=== PATIENT | male | born 1965 | race Caucasian/White ===

== ENCOUNTER 2017-10-12 15:50 | Inpatient (IN) | payer OTHER ==
[2017-10-12] MEDS: ALBUTEROL 0.5% (NEB) 2.5 MG/0.5 ML AMP INH (22:30)
[2017-10-12] MEDS: IPRATROPIUM (NEB) 0.5 MG/2.5 ML AMP INH (22:30)
[2017-10-12] MEDS: predniSONE 20 MG TAB PO (23:04)
[2017-10-12] MEDS: ONDANSETRON 4 MG INJ IV (23:05)
[2017-10-12 23:08] LABS: ADD MAN DIFF? NO
[2017-10-12 23:11] LABS: WHITE BLOOD COUNT 12.4 10^3/ul (4.8-10.8)
[2017-10-12 23:11] LABS: BASOPHIL # 0.1 10^3/ul (0.0-0.1); BASOPHILS % 0.5 % (0.0-2.0); EOSINOPHILS # 0.3 10^3/ul (0.0-0.5); EOSINOPHILS % 2.5 % (0.0-7.0); HEMATOCRIT 40.9 % (42.0-52.0); HEMOGLOBIN 13.8 g/dl (14.0-18.0); LYMPHOCYTES # 2.1 10^3/ul (0.8-2.9); LYMPHOCYTES % 16.6 % (15.0-51.0); MEAN CORPUSCULAR HEMOGLOBIN 30.9 pg (29.0-33.0); MEAN CORPUSCULAR HGB CONC 33.7 g/dl (32.0-37.0); MEAN CORPUSCULAR VOLUME 91.7 fl (82.0-101.0); MEAN PLATELET VOLUME 10.8 fl (7.4-10.4); MONOCYTE # 0.8 10^3/ul (0.3-0.9); MONOCYTES % 6.2 % (0.0-11.0); NEUTROPHIL # 9.1 10^3/ul (1.6-7.5); NEUTROPHILS % 73.6 % (39.0-77.0); PLATELET COUNT 206 10^3/UL (140-415); RED BLOOD COUNT 4.46 10^6/ul (4.70-6.10); RED CELL DISTRIBUTION WIDTH 12.9 % (11.5-14.5)
[2017-10-12 23:33] LABS: ALANINE AMINOTRANSFERASE 34 IU/L (13-69); ALBUMIN 4.1 g/dl (3.3-4.9); ALBUMIN/GLOBULIN RATIO 1.24; ALKALINE PHOSPHATASE 95 IU/L (42-121); ANION GAP 17 (8-16); ASPARTATE AMINO TRANSFERASE 17 IU/L (15-46); BILIRUBIN,INDIRECT 0.2 mg/dl (0-1.1); BILIRUBIN,TOTAL 0.2 mg/dl (0.2-1.3); BLOOD UREA NITROGEN 16 mg/dl (7-20); CALCIUM 8.6 mg/dl (8.4-10.2); CARBON DIOXIDE 24 mmol/L (21-31); CHLORIDE 102 mmol/L (97-110); CREATININE 0.92 mg/dl (0.61-1.24); GLUCOSE 181 mg/dl (70-220); LIPASE 43 U/L (23-300); POTASSIUM 3.2 mmol/L (3.5-5.1); SODIUM 140 mmol/L (135-144); TOTAL PROTEIN 7.4 g/dl (6.1-8.1)
[2017-10-12 23:46] LABS: TROPONIN-I < 0.012 ng/ml (0.00-0.12)
[2017-10-13] MEDS ORDERED: NACL 0.9% 3 ML SYG IV
[2017-10-13] MEDS: OSELTAMIVIR 75 MG CAP PO ×3 (00:27→20:26)
[2017-10-13] MEDS ORDERED: PHENOL 1.4% SOLN 180 ML BTL MT (00:30)
[2017-10-13] MEDS ORDERED: hydrALAzine 20 MG INJ IV (00:30)
[2017-10-13] MEDS: ACCU-CHEK XX (02:00)
[2017-10-13] MEDS ORDERED: GLUCOSE GEL 15 GRAM TUBE PO ×2 (02:30)
[2017-10-13] MEDS ORDERED: GLUCOSE GEL 15 GRAM TUBE BUCCAL (02:30)
[2017-10-13] MEDS ORDERED: GLUCAGON 1 MG INJ IM (02:30)
[2017-10-13] MEDS ORDERED: DEXTROSE 50% 50 ML SYRINGE IV ×2 (02:30)
[2017-10-13] MEDS: PANTOPRAZOLE 40 MG INJ IV (06:21)
[2017-10-13] MEDS: POTASSIUM CHLORIDE (SR) 20 MEQ TAB PO (06:21)
[2017-10-13 07:03] LABS: ADD MAN DIFF? NO
[2017-10-13 07:08] LABS: WHITE BLOOD COUNT 11.7 10^3/ul (4.8-10.8)
[2017-10-13 07:08] LABS: BASOPHILS % 0.3 % (0.0-2.0); EOSINOPHILS % 0.1 % (0.0-7.0); LYMPHOCYTES # 1.1 10^3/ul (0.8-2.9); LYMPHOCYTES % 9.7 % (15.0-51.0); MEAN CORPUSCULAR HEMOGLOBIN 30.3 pg (29.0-33.0); MEAN CORPUSCULAR HGB CONC 32.6 g/dl (32.0-37.0); MEAN CORPUSCULAR VOLUME 92.9 fl (82.0-101.0); MEAN PLATELET VOLUME 10.6 fl (7.4-10.4); MONOCYTE # 0.2 10^3/ul (0.3-0.9); MONOCYTES % 1.3 % (0.0-11.0); NEUTROPHIL # 10.3 10^3/ul (1.6-7.5); PLATELET COUNT 220 10^3/UL (140-415); RED BLOOD COUNT 4.95 10^6/ul (4.70-6.10); RED CELL DISTRIBUTION WIDTH 12.5 % (11.5-14.5)
[2017-10-13 08:05] LABS: ALANINE AMINOTRANSFERASE 32 IU/L (13-69); ALBUMIN 4.3 g/dl (3.3-4.9); ALKALINE PHOSPHATASE 88 IU/L (42-121); ANION GAP 17 (8-16); ASPARTATE AMINO TRANSFERASE 19 IU/L (15-46); BILIRUBIN,INDIRECT 0.3 mg/dl (0-1.1); BILIRUBIN,TOTAL 0.3 mg/dl (0.2-1.3); BLOOD UREA NITROGEN 13 mg/dl (7-20); CALCIUM 8.6 mg/dl (8.4-10.2); CARBON DIOXIDE 25 mmol/L (21-31); CHLORIDE 104 mmol/L (97-110); CHOL/HDL RATIO 3.8 RATIO; CHOLESTEROL 154 mg/dl (100-200); CREATININE 0.87 mg/dl (0.61-1.24); GLUCOSE 191 mg/dl (70-220); HDL CHOLESTEROL 40 mg/dl (28-71); LDL CHOLESTEROL,CALCULATED 102 mg/dl; POTASSIUM 3.8 mmol/L (3.5-5.1); SODIUM 142 mmol/L (135-144); TOTAL PROTEIN 7.6 g/dl (6.1-8.1); TRIGLYCERIDES 62 mg/dl (0-149)
[2017-10-13] MEDS: ASPIRIN (EC) 81 MG TAB PO (08:13)
[2017-10-13] MEDS: BENAZEPRIL 10 MG TAB PO ×2 (08:13→20:27)
[2017-10-13] MEDS: GUAIFENESIN/DM 5ML CUP PO ×2 (08:13→17:52)
[2017-10-13] MEDS: SPIRONOLACTONE 25 MG TAB PO (08:14)
[2017-10-13] MEDS: METHYLPREDNISOLONE 40 MG INJ IV ×2 (08:15→18:08)
[2017-10-13] MEDS: BUPROPION (XL) 150 MG TAB PO (08:39)
[2017-10-13] MEDS: ONDANSETRON 4 MG TAB PO (09:15)
[2017-10-13] MEDS: predniSONE 50 MG TAB PO (09:30)
[2017-10-13 10:04] LABS: THYROID STIMULATING HORMONE 0.415 MIU/L (0.465-4.680)
[2017-10-13] MEDS: INSULIN ASPART [NOVOLOG] 3 ML PEN SC ×6 (10:22→22:04)
[2017-10-13 10:54] LABS: HEMOGLOBIN A1C 7.3 % (0-5.9)
[2017-10-13 11:50] LABS: B-TYPE NATRIURETIC PEPTIDE 161 PG/ML (0-125)
[2017-10-13] MEDS: FUROSEMIDE 20 MG INJ IV ×2 (12:47→17:53)
[2017-10-13] MEDS: HYDROCODONE/APAP (5/325) TAB PO ×2 (13:01→17:53)
[2017-10-13] MEDS: ALBUTEROL/IPRATROPIUM (NEB) 3 ML AMP HHN ×3 (15:29→20:14)
[2017-10-13] MEDS ORDERED: INSULIN ASPART [NOVOLOG] 3 ML PEN SC (17:25)
[2017-10-13] MEDS: metFORMIN 500 MG TAB PO (17:54)
[2017-10-13] MEDS: ATORVASTATIN 10 MG TAB PO (20:26)
[2017-10-13] MEDS: traZODone 50 MG TAB PO (20:26)
[2017-10-13] MEDS: TERAZOSIN 2 MG CAP PO (22:44)
[2017-10-14] MEDS: METHYLPREDNISOLONE 40 MG INJ IV ×3 (01:18→17:28)
[2017-10-14] MEDS: ALBUTEROL/IPRATROPIUM (NEB) 3 ML AMP HHN ×6 (01:26→21:29)
[2017-10-14] MEDS: ACCU-CHEK XX (02:00)
[2017-10-14] MEDS: INSULIN ASPART [NOVOLOG] 3 ML PEN SC ×7 (02:01→20:45)
[2017-10-14] MEDS: HYDROCODONE/APAP (5/325) TAB PO ×4 (04:19→18:03)
[2017-10-14] MEDS: GUAIFENESIN/DM 5ML CUP PO (04:23)
[2017-10-14] MEDS: PANTOPRAZOLE 40 MG INJ IV (05:36)
[2017-10-14] MEDS: FUROSEMIDE 20 MG INJ IV (05:36)
[2017-10-14] MEDS: ONDANSETRON 4 MG TAB PO (05:41)
[2017-10-14] MEDS: BISACODYL (EC) 5 MG TAB PO ×2 (06:09→18:46)
[2017-10-14] MEDS: DOCUSATE SODIUM 100 MG CAP PO ×4 (06:09→20:23)
[2017-10-14 08:57] LABS: ADD MAN DIFF? NO
[2017-10-14] MEDS: OSELTAMIVIR 75 MG CAP PO ×2 (09:06→20:23)
[2017-10-14] MEDS: ASPIRIN (EC) 81 MG TAB PO (09:07)
[2017-10-14] MEDS: BENAZEPRIL 10 MG TAB PO ×2 (09:07→20:25)
[2017-10-14] MEDS: SPIRONOLACTONE 25 MG TAB PO (09:08)
[2017-10-14] MEDS: FISH OIL 1,000 MG CAP PO (09:08)
[2017-10-14] MEDS: BUPROPION (XL) 150 MG TAB PO (09:08)
[2017-10-14 09:11] LABS: BASOPHILS % 0.1 % (0.0-2.0); HEMATOCRIT 41.3 % (42.0-52.0); HEMOGLOBIN 13.6 g/dl (14.0-18.0); LYMPHOCYTES % 6.6 % (15.0-51.0); MEAN CORPUSCULAR HEMOGLOBIN 30.7 pg (29.0-33.0); MEAN CORPUSCULAR HGB CONC 32.9 g/dl (32.0-37.0); MEAN CORPUSCULAR VOLUME 93.2 fl (82.0-101.0); MEAN PLATELET VOLUME 10.9 fl (7.4-10.4); MONOCYTE # 0.2 10^3/ul (0.3-0.9); MONOCYTES % 1.1 % (0.0-11.0); NEUTROPHIL # 13.8 10^3/ul (1.6-7.5); NEUTROPHILS % 91.6 % (39.0-77.0); PLATELET COUNT 210 10^3/UL (140-415); RED BLOOD COUNT 4.43 10^6/ul (4.70-6.10); RED CELL DISTRIBUTION WIDTH 12.9 % (11.5-14.5)
[2017-10-14 09:11] LABS: WHITE BLOOD COUNT 15.1 10^3/ul (4.8-10.8)
[2017-10-14] MEDS: metFORMIN 500 MG TAB PO ×2 (09:11→17:40)
[2017-10-14 09:33] LABS: ANION GAP 17 (8-16); BLOOD UREA NITROGEN 25 mg/dl (7-20); CALCIUM 9.2 mg/dl (8.4-10.2); CARBON DIOXIDE 26 mmol/L (21-31); CHLORIDE 97 mmol/L (97-110); CREATININE 1.07 mg/dl (0.61-1.24); GLUCOSE 253 mg/dl (70-220); MAGNESIUM 1.6 mg/dl (1.7-2.5); POTASSIUM 4.1 mmol/L (3.5-5.1); SODIUM 136 mmol/L (135-144)
[2017-10-14] MEDS: MUPIROCIN 2% 22 GM OINT TOP ×2 (13:37→20:45)
[2017-10-14] MEDS: TERAZOSIN 2 MG CAP PO (20:24)
[2017-10-14] MEDS: traZODone 50 MG TAB PO (20:24)
[2017-10-14] MEDS: ATORVASTATIN 10 MG TAB PO (20:25)
[2017-10-15] MEDS: AL HYDROX/MG HYDROX/SIMETH 30 ML CUP PO (00:05)
[2017-10-15] MEDS: HYDROCODONE/APAP (5/325) TAB PO ×5 (00:05→21:22)
[2017-10-15] MEDS: METHYLPREDNISOLONE 40 MG INJ IV ×3 (00:15→20:57)
[2017-10-15] MEDS: INSULIN ASPART [NOVOLOG] 3 ML PEN SC ×8 (00:16→21:28)
[2017-10-15] MEDS: ALBUTEROL/IPRATROPIUM (NEB) 3 ML AMP HHN ×6 (01:00→19:56)
[2017-10-15] MEDS: ONDANSETRON 4 MG INJ IV ×2 (01:59→21:21)
[2017-10-15] MEDS: ACCU-CHEK XX (02:00)
[2017-10-15] MEDS: PANTOPRAZOLE 40 MG INJ IV (06:05)
[2017-10-15] MEDS: FISH OIL 1,000 MG CAP PO (08:14)
[2017-10-15] MEDS: SPIRONOLACTONE 25 MG TAB PO (08:14)
[2017-10-15] MEDS: DOCUSATE SODIUM 100 MG CAP PO (08:14)
[2017-10-15] MEDS: ASPIRIN (EC) 81 MG TAB PO (08:15)
[2017-10-15] MEDS: OSELTAMIVIR 75 MG CAP PO ×2 (08:16→20:58)
[2017-10-15] MEDS: BENAZEPRIL 10 MG TAB PO ×2 (08:16→20:58)
[2017-10-15] MEDS: BUPROPION (XL) 150 MG TAB PO (08:17)
[2017-10-15] MEDS: MUPIROCIN 2% 22 GM OINT TOP ×2 (08:17→21:14)
[2017-10-15] MEDS: metFORMIN 500 MG TAB PO ×2 (08:35→17:12)
[2017-10-15 10:54] LABS: ADD MAN DIFF? NO
[2017-10-15 10:58] LABS: BASOPHILS % 0.2 % (0.0-2.0); HEMATOCRIT 39.7 % (42.0-52.0); HEMOGLOBIN 12.9 g/dl (14.0-18.0); LYMPHOCYTES # 1.2 10^3/ul (0.8-2.9); LYMPHOCYTES % 7.1 % (15.0-51.0); MEAN CORPUSCULAR HEMOGLOBIN 30.3 pg (29.0-33.0); MEAN CORPUSCULAR HGB CONC 32.5 g/dl (32.0-37.0); MEAN CORPUSCULAR VOLUME 93.2 fl (82.0-101.0); MEAN PLATELET VOLUME 10.4 fl (7.4-10.4); MONOCYTE # 0.6 10^3/ul (0.3-0.9); MONOCYTES % 3.5 % (0.0-11.0); NEUTROPHIL # 14.3 10^3/ul (1.6-7.5); NEUTROPHILS % 88.5 % (39.0-77.0); PLATELET COUNT 222 10^3/UL (140-415); RED BLOOD COUNT 4.26 10^6/ul (4.70-6.10); RED CELL DISTRIBUTION WIDTH 12.5 % (11.5-14.5)
[2017-10-15 10:58] LABS: WHITE BLOOD COUNT 16.2 10^3/ul (4.8-10.8)
[2017-10-15 11:24] LABS: ANION GAP 17 (8-16); BLOOD UREA NITROGEN 34 mg/dl (7-20); CARBON DIOXIDE 25 mmol/L (21-31); CHLORIDE 100 mmol/L (97-110); CREATININE 1.03 mg/dl (0.61-1.24); GLUCOSE 215 mg/dl (70-220); POTASSIUM 4.9 mmol/L (3.5-5.1); SODIUM 137 mmol/L (135-144)
[2017-10-15] MEDS: GUAIFENESIN/DM 5ML CUP PO ×2 (14:03→20:57)
[2017-10-15] MEDS: BISACODYL (EC) 5 MG TAB PO (14:03)
[2017-10-15] MEDS: ATORVASTATIN 10 MG TAB PO (20:58)
[2017-10-15] MEDS: TERAZOSIN 2 MG CAP PO (20:58)
[2017-10-15] MEDS: traZODone 50 MG TAB PO (20:58)
[2017-10-15] MEDS ORDERED: METHYLPREDNISOLONE 40 MG INJ IV (21:00)
[2017-10-16] MEDS: ACETAMINOPHEN 325 MG TAB PO (00:26)
[2017-10-16] MEDS: ALBUTEROL/IPRATROPIUM (NEB) 3 ML AMP HHN ×7 (01:46→21:05)
[2017-10-16] MEDS: HYDROCODONE/APAP (5/325) TAB PO ×3 (02:10→20:56)
[2017-10-16] MEDS: ACCU-CHEK XX (02:19)
[2017-10-16] MEDS: ONDANSETRON 4 MG INJ IV ×2 (02:59→20:55)
[2017-10-16] MEDS: PANTOPRAZOLE 40 MG INJ IV (06:44)
[2017-10-16 06:48] LABS: ADD MAN DIFF? NO
[2017-10-16 06:59] LABS: BASOPHILS % 0.1 % (0.0-2.0); HEMATOCRIT 39.6 % (42.0-52.0); LYMPHOCYTES # 1.2 10^3/ul (0.8-2.9); MEAN CORPUSCULAR HEMOGLOBIN 30.2 pg (29.0-33.0); MEAN CORPUSCULAR HGB CONC 32.8 g/dl (32.0-37.0); MEAN CORPUSCULAR VOLUME 92.1 fl (82.0-101.0); MEAN PLATELET VOLUME 10.4 fl (7.4-10.4); MONOCYTE # 0.8 10^3/ul (0.3-0.9); MONOCYTES % 5.4 % (0.0-11.0); NEUTROPHIL # 12.8 10^3/ul (1.6-7.5); NEUTROPHILS % 85.8 % (39.0-77.0); PLATELET COUNT 209 10^3/UL (140-415); RED CELL DISTRIBUTION WIDTH 12.6 % (11.5-14.5)
[2017-10-16 06:59] LABS: WHITE BLOOD COUNT 14.9 10^3/ul (4.8-10.8)
[2017-10-16 07:20] LABS: ANION GAP 18 (8-16); BLOOD UREA NITROGEN 32 mg/dl (7-20); CALCIUM 8.8 mg/dl (8.4-10.2); CARBON DIOXIDE 27 mmol/L (21-31); CHLORIDE 99 mmol/L (97-110); CREATININE 1.06 mg/dl (0.61-1.24); GLUCOSE 232 mg/dl (70-220); POTASSIUM 4.6 mmol/L (3.5-5.1); SODIUM 139 mmol/L (135-144)
[2017-10-16] MEDS: metFORMIN 500 MG TAB PO ×2 (08:00→17:16)
[2017-10-16] MEDS: INSULIN ASPART [NOVOLOG] 3 ML PEN SC ×5 (08:03→20:41)
[2017-10-16] MEDS: BENAZEPRIL 10 MG TAB PO ×2 (09:00→20:37)
[2017-10-16] MEDS: OSELTAMIVIR 75 MG CAP PO ×2 (09:00→20:37)
[2017-10-16] MEDS: FISH OIL 1,000 MG CAP PO (09:00)
[2017-10-16] MEDS: METHYLPREDNISOLONE 40 MG INJ IV (09:00)
[2017-10-16] MEDS: SPIRONOLACTONE 25 MG TAB PO (09:01)
[2017-10-16] MEDS: DOCUSATE SODIUM 100 MG CAP PO (09:01)
[2017-10-16] MEDS: ASPIRIN (EC) 81 MG TAB PO (09:02)
[2017-10-16] MEDS: MUPIROCIN 2% 22 GM OINT TOP ×2 (09:02→20:39)
[2017-10-16] MEDS: BUPROPION (XL) 150 MG TAB PO (11:02)
[2017-10-16 16:11] LABS: OCCULT BLOOD STOOL NEGATIVE (NEGATIVE)
[2017-10-16 17:05] LABS: ANION GAP 16 (8-16); BLOOD UREA NITROGEN 28 mg/dl (7-20); CALCIUM 8.9 mg/dl (8.4-10.2); CARBON DIOXIDE 27 mmol/L (21-31); CHLORIDE 97 mmol/L (97-110); CREATININE 0.99 mg/dl (0.61-1.24); GLUCOSE 235 mg/dl (70-220); POTASSIUM 4.4 mmol/L (3.5-5.1); SODIUM 136 mmol/L (135-144)
[2017-10-16] MEDS: GUAIFENESIN/DM 5ML CUP PO (17:16)
[2017-10-16] MEDS: TERAZOSIN 2 MG CAP PO (20:37)
[2017-10-16] MEDS: ATORVASTATIN 10 MG TAB PO (20:37)
[2017-10-16] MEDS: traZODone 50 MG TAB PO (20:38)
[2017-10-16] MEDS: AL HYDROX/MG HYDROX/SIMETH 30 ML CUP PO (20:39)
[2017-10-17] MEDS: ALBUTEROL/IPRATROPIUM (NEB) 3 ML AMP HHN ×3 (01:00→09:00)
[2017-10-17] MEDS: ACCU-CHEK XX (02:00)
[2017-10-17] MEDS: PANTOPRAZOLE 40 MG INJ IV (05:04)
[2017-10-17] MEDS: HYDROCODONE/APAP (5/325) TAB PO (05:05)
[2017-10-17] MEDS: INSULIN ASPART [NOVOLOG] 3 ML PEN SC ×3 (07:55→11:50)
[2017-10-17] MEDS: BUPROPION (XL) 150 MG TAB PO (08:12)
[2017-10-17] MEDS: OSELTAMIVIR 75 MG CAP PO (08:12)
[2017-10-17] MEDS: ASPIRIN (EC) 81 MG TAB PO (08:13)
[2017-10-17] MEDS: BENAZEPRIL 10 MG TAB PO (08:13)
[2017-10-17] MEDS: SPIRONOLACTONE 25 MG TAB PO (08:13)
[2017-10-17] MEDS: metFORMIN 500 MG TAB PO (08:13)
[2017-10-17] MEDS: FISH OIL 1,000 MG CAP PO (08:13)
[2017-10-17] MEDS: MUPIROCIN 2% 22 GM OINT TOP (08:14)
[2017-10-17 08:15] LABS: ADD MAN DIFF? NO
[2017-10-17] MEDS: METHYLPREDNISOLONE 40 MG INJ IV (08:40)
[2017-10-17 09:03] LABS: BASOPHILS % 0.2 % (0.0-2.0); EOSINOPHILS % 0.1 % (0.0-7.0); HEMOGLOBIN 13.5 g/dl (14.0-18.0); LYMPHOCYTES # 2.4 10^3/ul (0.8-2.9); MEAN CORPUSCULAR HEMOGLOBIN 30.5 pg (29.0-33.0); MEAN CORPUSCULAR HGB CONC 32.9 g/dl (32.0-37.0); MEAN CORPUSCULAR VOLUME 92.6 fl (82.0-101.0); MEAN PLATELET VOLUME 10.6 fl (7.4-10.4); MONOCYTE # 1.1 10^3/ul (0.3-0.9); MONOCYTES % 9.2 % (0.0-11.0); NEUTROPHIL # 8.7 10^3/ul (1.6-7.5); PLATELET COUNT 203 10^3/UL (140-415); RED BLOOD COUNT 4.43 10^6/ul (4.70-6.10); RED CELL DISTRIBUTION WIDTH 12.3 % (11.5-14.5)
[2017-10-17 09:03] LABS: WHITE BLOOD COUNT 12.4 10^3/ul (4.8-10.8)
[2017-10-17] MEDS: DOCUSATE SODIUM 100 MG CAP PO (10:06)
== END 2017-10-17 13:10 | disposition home or self-care (01) | DRG 194 ==
LOC: TEL 23:44 → E/R 15:50
PROVIDERS: Family Medicine
DX: J10.1 Influenza due to other identified influenza virus with other respiratory manifestations (principal); J44.1 Chronic obstructive pulmonary disease with (acute) exacerbation; K63.2 Fistula of intestine; E11.65 Type 2 diabetes mellitus with hyperglycemia; I50.22 Chronic systolic (congestive) heart failure; I11.0 Hypertensive heart disease with heart failure; I50.20 Unspecified systolic (congestive) heart failure; T38.0X5A Adverse effect of glucocorticoids and synthetic analogues, initial encounter; I25.5 Ischemic cardiomyopathy; R06.89 Other abnormalities of breathing; E87.6 Hypokalemia; E78.5 Hyperlipidemia, unspecified; I25.10 Atherosclerotic heart disease of native coronary artery without angina pectoris; Z95.1 Presence of aortocoronary bypass graft; Z95.810 Presence of automatic (implantable) cardiac defibrillator
CPT/HCPCS: 36415; 71010; 71045; 74018; 80048; 80053; 80061; 82270; 82962; 83036; 83690; 83735; 83880; 84443; 84484; 85025; 87070; 87081; 87400; 93005; 93306; 94640; 94644; 94664; 96374; 99285-25; J1940

== ENCOUNTER 2018-03-06 10:55 | Inpatient (IN) | payer OTHER ==
[2018-03-06 11:56] LABS: ADD MAN DIFF? NO
[2018-03-06 12:04] LABS: WHITE BLOOD COUNT 6.8 10^3/ul (4.8-10.8)
[2018-03-06 12:04] LABS: BASOPHIL # 0.1 10^3/ul (0.0-0.1); BASOPHILS % 0.7 % (0.0-2.0); EOSINOPHILS # 0.1 10^3/ul (0.0-0.5); EOSINOPHILS % 1.9 % (0.0-7.0); HEMATOCRIT 49.2 % (42.0-52.0); HEMOGLOBIN 15.4 g/dl (14.0-18.0); LYMPHOCYTES # 1.9 10^3/ul (0.8-2.9); LYMPHOCYTES % 28.5 % (15.0-51.0); MEAN CORPUSCULAR HEMOGLOBIN 29.6 pg (29.0-33.0); MEAN CORPUSCULAR HGB CONC 31.3 g/dl (32.0-37.0); MEAN CORPUSCULAR VOLUME 94.6 fl (82.0-101.0); MEAN PLATELET VOLUME 10.2 fl (7.4-10.4); MONOCYTE # 0.6 10^3/ul (0.3-0.9); MONOCYTES % 9.1 % (0.0-11.0); NEUTROPHILS % 59.4 % (39.0-77.0); PLATELET COUNT 219 10^3/UL (140-415); RED CELL DISTRIBUTION WIDTH 13.9 % (11.5-14.5)
[2018-03-06 12:25] LABS: ANION GAP 16 (8-16); BLOOD UREA NITROGEN 19 mg/dl (7-20); CALCIUM 8.3 mg/dl (8.4-10.2); CARBON DIOXIDE 27 mmol/L (21-31); CHLORIDE 106 mmol/L (97-110); CREATININE 1.28 mg/dl (0.61-1.24); GLUCOSE 194 mg/dl (70-220); POTASSIUM 3.9 mmol/L (3.5-5.1); SODIUM 145 mmol/L (135-144)
[2018-03-06 12:37] LABS: B-TYPE NATRIURETIC PEPTIDE 1680 PG/ML (0-125); TROPONIN-I 0.043 ng/ml (0.000-0.120)
[2018-03-06] MEDS: KETOROLAC 15 MG INJ IV (14:24)
[2018-03-06] MEDS: ASPIRIN 81 MG TAB PO (14:24)
[2018-03-06] MEDS: LABETALOL HCL 20MG INJ IV (15:08)
[2018-03-06] MEDS: LEVOFLOXACIN 750MG/D5W (PMX) 150 ML IVPB (15:08)
[2018-03-06] MEDS ORDERED: ONDANSETRON 4 MG INJ IV ×2 (15:30→17:00)
[2018-03-06] MEDS ORDERED: DIPHENHYDRAMINE 50 MG INJ (15:40)
[2018-03-06] MEDS ORDERED: METHYLPREDNISOLONE 125 MG INJ (15:40)
[2018-03-06] MEDS ORDERED: EPINEPHrine 1 MG INJ (15:40)
[2018-03-06] MEDS: DIPHENHYDRAMINE 50 MG INJ IV (16:11)
[2018-03-06] MEDS: METHYLPREDNISOLONE 125 MG INJ IV (16:11)
[2018-03-06] MEDS: IPRATROPIUM (NEB) 0.5 MG/2.5 ML AMP INH (16:25)
[2018-03-06] MEDS: ALBUTEROL 0.083% (NEB) 2.5 MG/3 ML AMP INH (16:25)
[2018-03-06] MEDS ORDERED: LORAZEPAM 2 MG INJ (16:40)
[2018-03-06] MEDS: LORAZEPAM 2 MG INJ IV (16:43)
[2018-03-06] MEDS ORDERED: MAGNESIUM HYDROXIDE 30ML CUP PO (17:00)
[2018-03-06] MEDS ORDERED: ALBUTEROL/IPRATROPIUM (NEB) 3 ML AMP HHN (17:00)
[2018-03-06] MEDS ORDERED: NACL 0.9% 3 ML SYG IV (17:00)
[2018-03-06 17:32] LABS: CREATINE KINASE 169 IU/L (23-200)
[2018-03-06 17:43] LABS: CK-MB 3.33 ng/ml (0.0-2.4); TROPONIN-I 0.039 ng/ml (0.000-0.120)
[2018-03-06] MEDS: FUROSEMIDE 40 MG INJ IV (22:07)
[2018-03-06] MEDS: ZOLPIDEM 5 MG TAB PO (22:08)
[2018-03-06] MEDS: metFORMIN 500 MG TAB PO (22:08)
[2018-03-06] MEDS: ATORVASTATIN 40 MG TAB PO (22:08)
[2018-03-06] MEDS: DOCUSATE SODIUM 100 MG CAP PO (22:09)
[2018-03-06] MEDS: ACETAMINOPHEN 325 MG TAB PO (22:51)
[2018-03-06] MEDS: TERAZOSIN 2 MG CAP PO (22:52)
[2018-03-06] MEDS: HALOPERIDOL 5 MG INJ IV (23:12)
[2018-03-06 23:55] LABS: CREATINE KINASE 181 IU/L (23-200)
[2018-03-07 00:05] LABS: CK-MB 3.68 ng/ml (0.0-2.4); TROPONIN-I 0.028 ng/ml (0.000-0.120)
[2018-03-07] MEDS: LORAZEPAM 2 MG INJ IV ×3 (00:12→01:38)
[2018-03-07] MEDS ORDERED: DIPHENHYDRAMINE 50 MG INJ (00:59)
[2018-03-07] MEDS ORDERED: LORAZEPAM 2 MG INJ IV (01:30)
[2018-03-07] MEDS: DIPHENHYDRAMINE 50 MG INJ IV (01:38)
[2018-03-07] MEDS: HALOPERIDOL 5 MG INJ IM (01:39)
[2018-03-07] MEDS ORDERED: PROPOFOL 100 ML (01:55)
[2018-03-07 02:49] LABS: AADO2 Arterial 326.3 mmHg (7.0-24.0); Allen Test ACCEPTAB; Arterial Base Excess -4.6 mmol/L (-3.0-3); Arterial Blood Gas Oxygen Sat 99.7 mmHG (95.0-98.0); Arterial COHb 0.7 % (0.0-3.0); Arterial Fraction of Oxyhgb 98.4 % (93.0-99.0); Arterial HCO3 21.9 mmol/L (22.0-26.0); Arterial MetHb 0.6 % (0.0-1.5); Arterial Total Hemglobin 15.8 g/dl (12.0-18.0); Arterial pCO2 45.4 mmhg (35-45); MODE VENT - AC; Site Right Radial
[2018-03-07] MEDS: PROPOFOL 100 ML IV ×3 (02:53→16:15)
[2018-03-07 03:25] LABS: ADD MAN DIFF? NO
[2018-03-07 03:28] LABS: WHITE BLOOD COUNT 8.6 10^3/ul (4.8-10.8)
[2018-03-07 03:28] LABS: ABNORMAL IP MESSAGE 1; BASOPHILS % 0.1 % (0.0-2.0); HEMATOCRIT 46.3 % (42.0-52.0); HEMOGLOBIN 14.6 g/dl (14.0-18.0); LYMPHOCYTES # 0.6 10^3/ul (0.8-2.9); LYMPHOCYTES % 6.6 % (15.0-51.0); MEAN CORPUSCULAR HEMOGLOBIN 29.8 pg (29.0-33.0); MEAN CORPUSCULAR HGB CONC 31.5 g/dl (32.0-37.0); MEAN CORPUSCULAR VOLUME 94.5 fl (82.0-101.0); MEAN PLATELET VOLUME 10.3 fl (7.4-10.4); MONOCYTE # 0.1 10^3/ul (0.3-0.9); NEUTROPHIL # 7.9 10^3/ul (1.6-7.5); NEUTROPHILS % 91.8 % (39.0-77.0); PLATELET COUNT 200 10^3/UL (140-415); POSITIVE DIFF @See below; RED CELL DISTRIBUTION WIDTH 13.7 % (11.5-14.5)
[2018-03-07 03:48] LABS: ADD UMIC YES; AMPHETAMINE/METHAMPHETAMINE POSITIVE (NEGATIVE); BARBITURATES NEGATIVE (NEGATIVE); BENZODIAZEPINES NEGATIVE (NEGATIVE); CANNABINOIDS NEGATIVE (NEGATIVE); COCAINE NEGATIVE (NEGATIVE); OPIATES NEGATIVE (NEGATIVE); UR AMORPHOUS CRYSTAL FEW /HPF (NONE SEEN); UR ASCORBIC ACID NEGATIVE (NEGATIVE); UR BACTERIA FEW /HPF (NONE SEEN); UR BILIRUBIN (Dip) NEGATIVE (NEGATIVE); UR BLOOD (Dip) 1+ mg/dL (NEGATIVE); UR CLARITY CLOUDY (CLEAR); UR COLOR YELLOW (YELLOW); UR GLUCOSE (Dip) 3+ mg/dL (NEGATIVE); UR KETONES (Dip) NEGATIVE (NEGATIVE); UR LEUKOCYTE ESTERASE (Dip) NEGATIVE Leu/ul (NEGATIVE); UR MUCUS FEW /HPF (NONE SEEN); UR NITRITE (Dip) NEGATIVE (NEGATIVE); UR NONSQUAMOUS EPITHELIAL CELL 4 /HPF (NONE SEEN); UR RBC 37 /HPF (0-5); UR SPECIFIC GRAVITY (Dip) 1.018 (1.003-1.030); UR TOTAL PROTEIN (Dip) 3+ mg/dl (NEGATIVE); UR UROBILINOGEN (Dip) 1+ mg/dL (NEGATIVE); UR WBC 18 /HPF (0-5)
[2018-03-07 03:50] LABS: AMMONIA 26 umol/l (9-30)
[2018-03-07 03:55] LABS: ANION GAP 18 (8-16); BLOOD UREA NITROGEN 24 mg/dl (7-20); CALCIUM 8.5 mg/dl (8.4-10.2); CARBON DIOXIDE 24 mmol/L (21-31); CHLORIDE 106 mmol/L (97-110); CREATININE 1.42 mg/dl (0.61-1.24); GLUCOSE 237 mg/dl (70-220); MAGNESIUM 1.9 mg/dl (1.7-2.5); PHOSPHORUS 4.9 mg/dl (2.5-4.9); POTASSIUM 4.8 mmol/L (3.5-5.1); SODIUM 143 mmol/L (135-144)
[2018-03-07 04:03] LABS: B-TYPE NATRIURETIC PEPTIDE 3180 PG/ML (0-125)
[2018-03-07 04:11] LABS: HEMOGLOBIN A1C 6.9 % (0-5.9)
[2018-03-07] MEDS ORDERED: DEXTROSE 50% 50 ML SYRINGE IV ×2 (05:00)
[2018-03-07] MEDS ORDERED: GLUCAGON 1 MG INJ IM (05:00)
[2018-03-07] MEDS ORDERED: GLUCOSE GEL 15 GRAM TUBE PO ×2 (05:00)
[2018-03-07] MEDS ORDERED: GLUCOSE GEL 15 GRAM TUBE BUCCAL (05:00)
[2018-03-07] MEDS: FUROSEMIDE 40 MG INJ IV ×2 (06:00→17:33)
[2018-03-07] MEDS: INSULIN ASPART [NOVOLOG] 3 ML PEN SC ×5 (06:42→21:00)
[2018-03-07] MEDS ORDERED: SUCCINYLCHOLINE CHLORIDE 100 MG/5 ML SYG IV (07:00)
[2018-03-07] MEDS ORDERED: ETOMIDATE 20 MG INJ (07:00)
[2018-03-07] MEDS ORDERED: PROPOFOL 200 MG INJ (07:00)
[2018-03-07] MEDS: BUPROPION (XL) 150 MG TAB PO (09:00)
[2018-03-07] MEDS ORDERED: NORepinephrine 8MG/250 ML (PMX 250 ML (09:18)
[2018-03-07] MEDS: POTASSIUM CHLORIDE (SR) 10 MEQ TAB PO (10:00)
[2018-03-07] MEDS: ASPIRIN (EC) 81 MG TAB PO (10:00)
[2018-03-07] MEDS: LISINOPRIL 5 MG TAB PO (10:00)
[2018-03-07] MEDS: FAMOTIDINE 20 MG TAB PO (10:02)
[2018-03-07] MEDS: metFORMIN 500 MG TAB PO ×2 (10:02→17:32)
[2018-03-07 12:42] LABS: URIC ACID 5.5 mg/dl (3.1-7.9)
[2018-03-07 12:44] LABS: CREATINE KINASE 405 IU/L (23-200)
[2018-03-07 13:52] LABS: SODIUM,URINE RANDOM 130 mmol/L (30-90)
[2018-03-07 14:04] LABS: CREATININE,URINE RANDOM < 12.40 mg/dl (20-370)
[2018-03-07] MEDS: BUPROPION 100 MG TAB NGT ×2 (14:39→21:02)
[2018-03-07] MEDS: TERAZOSIN 2 MG CAP PO (21:01)
[2018-03-07] MEDS: ATORVASTATIN 40 MG TAB PO (21:02)
[2018-03-08] MEDS: PROPOFOL 100 ML IV ×4 (00:15→17:56)
[2018-03-08] MEDS: INSULIN ASPART [NOVOLOG] 3 ML PEN SC ×6 (03:01→21:00)
[2018-03-08 05:48] LABS: ADD MAN DIFF? NO
[2018-03-08 06:00] LABS: BASOPHILS % 0.2 % (0.0-2.0); EOSINOPHILS % 0.1 % (0.0-7.0); HEMATOCRIT 46.7 % (42.0-52.0); HEMOGLOBIN 14.9 g/dl (14.0-18.0); LYMPHOCYTES # 2.4 10^3/ul (0.8-2.9); MEAN CORPUSCULAR HGB CONC 31.9 g/dl (32.0-37.0); MEAN PLATELET VOLUME 10.6 fl (7.4-10.4); MONOCYTE # 1.1 10^3/ul (0.3-0.9); MONOCYTES % 8.4 % (0.0-11.0); NEUTROPHIL # 9.1 10^3/ul (1.6-7.5); NEUTROPHILS % 71.9 % (39.0-77.0); PLATELET COUNT 200 10^3/UL (140-415); RED BLOOD COUNT 4.97 10^6/ul (4.70-6.10); RED CELL DISTRIBUTION WIDTH 14.5 % (11.5-14.5)
[2018-03-08 06:00] LABS: WHITE BLOOD COUNT 12.6 10^3/ul (4.8-10.8)
[2018-03-08] MEDS: FUROSEMIDE 40 MG INJ IV ×2 (06:06→17:57)
[2018-03-08 06:32] LABS: ANION GAP 15 (8-16); BLOOD UREA NITROGEN 36 mg/dl (7-20); CALCIUM 8.7 mg/dl (8.4-10.2); CARBON DIOXIDE 28 mmol/L (21-31); CHLORIDE 107 mmol/L (97-110); CREATININE 1.55 mg/dl (0.61-1.24); GLUCOSE 125 mg/dl (70-220); POTASSIUM 4.2 mmol/L (3.5-5.1); SODIUM 146 mmol/L (135-144)
[2018-03-08 07:55] LABS: AADO2 Arterial 133.2 mmHg (7.0-24.0); Allen Test ACCEPTAB; Arterial Base Excess 2.7 mmol/L (-3.0-3); Arterial HCO3 26.9 mmol/L (22.0-26.0); Arterial pCO2 39.9 mmhg (35-45); MODE VENT - AC; Site Right Radial
[2018-03-08] MEDS: ASPIRIN (EC) 81 MG TAB PO (08:43)
[2018-03-08] MEDS: FAMOTIDINE 20 MG TAB PO (08:43)
[2018-03-08] MEDS: BUPROPION 100 MG TAB NGT ×3 (08:43→21:25)
[2018-03-08] MEDS: POTASSIUM CHLORIDE (SR) 10 MEQ TAB PO (08:44)
[2018-03-08] MEDS: LISINOPRIL 5 MG TAB PO (09:00)
[2018-03-08] MEDS: DEXMEDETOMIDINE HCL 200 MCG in SOD CHLORIDE 0.9% 48 ML IV ×3 (09:53→20:22)
[2018-03-08] MEDS: TERAZOSIN 2 MG CAP PO (21:00)
[2018-03-08] MEDS: ATORVASTATIN 40 MG TAB PO (21:25)
[2018-03-09] MEDS: DEXMEDETOMIDINE HCL 200 MCG in SOD CHLORIDE 0.9% 48 ML IV ×5 (00:52→11:50)
[2018-03-09] MEDS: INSULIN ASPART [NOVOLOG] 3 ML PEN SC ×6 (01:00→21:13)
[2018-03-09] MEDS: PROPOFOL 100 ML IV (01:37)
[2018-03-09 05:45] LABS: ADD MAN DIFF? NO
[2018-03-09 06:00] LABS: WHITE BLOOD COUNT 8.6 10^3/ul (4.8-10.8)
[2018-03-09 06:00] LABS: BASOPHILS % 0.4 % (0.0-2.0); EOSINOPHILS % 0.4 % (0.0-7.0); HEMATOCRIT 50.1 % (42.0-52.0); HEMOGLOBIN 15.9 g/dl (14.0-18.0); LYMPHOCYTES # 1.8 10^3/ul (0.8-2.9); LYMPHOCYTES % 21.2 % (15.0-51.0); MEAN CORPUSCULAR HEMOGLOBIN 29.9 pg (29.0-33.0); MEAN CORPUSCULAR HGB CONC 31.7 g/dl (32.0-37.0); MEAN CORPUSCULAR VOLUME 94.2 fl (82.0-101.0); MEAN PLATELET VOLUME 10.5 fl (7.4-10.4); MONOCYTE # 0.8 10^3/ul (0.3-0.9); MONOCYTES % 9.3 % (0.0-11.0); NEUTROPHIL # 5.9 10^3/ul (1.6-7.5); NEUTROPHILS % 68.2 % (39.0-77.0); PLATELET COUNT 160 10^3/UL (140-415); RED BLOOD COUNT 5.32 10^6/ul (4.70-6.10); RED CELL DISTRIBUTION WIDTH 14.4 % (11.5-14.5)
[2018-03-09] MEDS: FUROSEMIDE 40 MG INJ IV ×2 (06:00→17:25)
[2018-03-09 06:32] LABS: ALANINE AMINOTRANSFERASE 24 IU/L (13-69); ALBUMIN 3.4 g/dl (3.3-4.9); ALBUMIN/GLOBULIN RATIO 0.94; ALKALINE PHOSPHATASE 64 IU/L (42-121); ANION GAP 14 (8-16); ASPARTATE AMINO TRANSFERASE 31 IU/L (15-46); BILIRUBIN,INDIRECT 0.7 mg/dl (0-1.1); BILIRUBIN,TOTAL 0.7 mg/dl (0.2-1.3); BLOOD UREA NITROGEN 36 mg/dl (7-20); CALCIUM 8.7 mg/dl (8.4-10.2); CARBON DIOXIDE 28 mmol/L (21-31); CHLORIDE 108 mmol/L (97-110); CREATININE 1.27 mg/dl (0.61-1.24); GLUCOSE 122 mg/dl (70-220); POTASSIUM 4.2 mmol/L (3.5-5.1); SODIUM 146 mmol/L (135-144)
[2018-03-09] MEDS: BUPROPION 100 MG TAB NGT ×3 (08:39→14:01)
[2018-03-09] MEDS: ASPIRIN (EC) 81 MG TAB PO (08:40)
[2018-03-09] MEDS: POTASSIUM CHLORIDE (SR) 10 MEQ TAB PO (08:40)
[2018-03-09] MEDS: FAMOTIDINE 20 MG TAB PO (08:40)
[2018-03-09] MEDS: LISINOPRIL 5 MG TAB PO (08:40)
[2018-03-09 08:53] LABS: PHOSPHORUS 4.7 mg/dl (2.5-4.9)
[2018-03-09 08:53] LABS: MAGNESIUM 2.1 mg/dl (1.7-2.5)
[2018-03-09 12:24] LABS: AADO2 Arterial 73.6 mmHg (7.0-24.0); Allen Test ACCEPTAB; Arterial Base Excess 3.7 mmol/L (-3.0-3); Arterial Blood Gas Oxygen Sat 96.7 mmHG (95.0-98.0); Arterial COHb 0.5 % (0.0-3.0); Arterial Fraction of Oxyhgb 95.8 % (93.0-99.0); Arterial HCO3 28.6 mmol/L (22.0-26.0); Arterial MetHb 0.4 % (0.0-1.5); Arterial Total Hemglobin 17.5 g/dl (12.0-18.0); Arterial pCO2 43.6 mmhg (35-45); Blood Gas PS 10; MODE VENT - CPAP; Site Right Radial
[2018-03-09] MEDS: TERAZOSIN 2 MG CAP PO (21:00)
[2018-03-09] MEDS: ATORVASTATIN 40 MG TAB PO (21:12)
[2018-03-10] MEDS: ACCU-CHEK XX (02:00)
[2018-03-10] MEDS ORDERED: ACETYLCYSTEINE 20% 4 ML VIAL NEB (02:40)
[2018-03-10] MEDS: LORAZEPAM 2 MG INJ IV ×3 (03:26→23:36)
[2018-03-10] MEDS: FUROSEMIDE 40 MG INJ IV ×2 (06:55→17:33)
[2018-03-10] MEDS: GUAIFENESIN/DM 5ML CUP PO (07:00)
[2018-03-10 07:45] LABS: ADD MAN DIFF? NO
[2018-03-10 07:49] LABS: BASOPHILS % 0.4 % (0.0-2.0); EOSINOPHILS # 0.1 10^3/ul (0.0-0.5); EOSINOPHILS % 0.9 % (0.0-7.0); HEMATOCRIT 48.7 % (42.0-52.0); HEMOGLOBIN 15.6 g/dl (14.0-18.0); LYMPHOCYTES # 2.2 10^3/ul (0.8-2.9); LYMPHOCYTES % 22.4 % (15.0-51.0); MEAN CORPUSCULAR VOLUME 93.7 fl (82.0-101.0); MEAN PLATELET VOLUME 10.5 fl (7.4-10.4); MONOCYTES % 10.4 % (0.0-11.0); NEUTROPHIL # 6.3 10^3/ul (1.6-7.5); NEUTROPHILS % 65.5 % (39.0-77.0); PLATELET COUNT 138 10^3/UL (140-415); POSITIVE DIFF @See below; RED CELL DISTRIBUTION WIDTH 13.6 % (11.5-14.5)
[2018-03-10 07:49] LABS: WHITE BLOOD COUNT 9.6 10^3/ul (4.8-10.8)
[2018-03-10] MEDS: INSULIN ASPART [NOVOLOG] 3 ML PEN SC ×4 (07:55→21:24)
[2018-03-10 08:25] LABS: ANION GAP 10 (8-16); BLOOD UREA NITROGEN 29 mg/dl (7-20); CALCIUM 8.6 mg/dl (8.4-10.2); CARBON DIOXIDE 33 mmol/L (21-31); CHLORIDE 103 mmol/L (97-110); CREATININE 1.04 mg/dl (0.61-1.24); GLUCOSE 118 mg/dl (70-220); PHOSPHORUS 3.6 mg/dl (2.5-4.9); POTASSIUM 3.3 mmol/L (3.5-5.1); SODIUM 143 mmol/L (135-144)
[2018-03-10 09:03] LABS: AADO2 Arterial 119.9 mmHg (7.0-24.0); Allen Test ACCEPTAB; Arterial Base Excess 4.2 mmol/L (-3.0-3); Arterial Blood Gas Oxygen Sat 93.4 mmHG (95.0-98.0); Arterial COHb 0.9 % (0.0-3.0); Arterial Fraction of Oxyhgb 92.3 % (93.0-99.0); Arterial HCO3 28.6 mmol/L (22.0-26.0); Arterial MetHb 0.3 % (0.0-1.5); Arterial Total Hemglobin 16.5 g/dl (12.0-18.0); Arterial pCO2 41.6 mmhg (35-45); MODE NASAL CANNULA; Site Right Radial
[2018-03-10] MEDS: LISINOPRIL 5 MG TAB PO (09:04)
[2018-03-10] MEDS: BUPROPION 100 MG TAB NGT ×3 (09:04→21:18)
[2018-03-10] MEDS: ASPIRIN (EC) 81 MG TAB PO (09:04)
[2018-03-10] MEDS: POTASSIUM CHLORIDE (SR) 10 MEQ TAB PO ×2 (09:05→12:56)
[2018-03-10] MEDS: FAMOTIDINE 20 MG TAB PO (09:05)
[2018-03-10] MEDS: ALBUTEROL/IPRATROPIUM (NEB) 3 ML AMP HHN ×3 (12:32→20:08)
[2018-03-10] MEDS: predniSONE 50 MG TAB PO (14:40)
[2018-03-10] MEDS: ACETAMINOPHEN 325 MG TAB PO ×2 (17:32→23:35)
[2018-03-10] MEDS: ATORVASTATIN 40 MG TAB PO (21:18)
[2018-03-10] MEDS: TERAZOSIN 2 MG CAP PO (21:18)
[2018-03-11] MEDS: ALBUTEROL/IPRATROPIUM (NEB) 3 ML AMP HHN ×6 (01:21→20:22)
[2018-03-11] MEDS: ACCU-CHEK XX (02:58)
[2018-03-11] MEDS: ACETAMINOPHEN 325 MG TAB PO ×3 (05:01→20:33)
[2018-03-11] MEDS: FUROSEMIDE 40 MG INJ IV ×2 (05:01→17:36)
[2018-03-11 07:03] LABS: ADD MAN DIFF? NO
[2018-03-11 07:06] LABS: BASOPHILS % 0.2 % (0.0-2.0); EOSINOPHILS % 0.3 % (0.0-7.0); HEMATOCRIT 45.1 % (42.0-52.0); HEMOGLOBIN 14.9 g/dl (14.0-18.0); LYMPHOCYTES # 1.6 10^3/ul (0.8-2.9); LYMPHOCYTES % 16.4 % (15.0-51.0); MEAN CORPUSCULAR VOLUME 90.9 fl (82.0-101.0); MONOCYTE # 0.9 10^3/ul (0.3-0.9); MONOCYTES % 8.9 % (0.0-11.0); NEUTROPHILS % 73.8 % (39.0-77.0); PLATELET COUNT 130 10^3/UL (140-415); POSITIVE DIFF @See below; RED BLOOD COUNT 4.96 10^6/ul (4.70-6.10); RED CELL DISTRIBUTION WIDTH 13.3 % (11.5-14.5)
[2018-03-11 07:06] LABS: WHITE BLOOD COUNT 9.5 10^3/ul (4.8-10.8)
[2018-03-11 07:42] LABS: ANION GAP 13 (8-16); BLOOD UREA NITROGEN 21 mg/dl (7-20); CALCIUM 8.5 mg/dl (8.4-10.2); CARBON DIOXIDE 34 mmol/L (21-31); CHLORIDE 99 mmol/L (97-110); CREATININE 0.92 mg/dl (0.61-1.24); GLUCOSE 147 mg/dl (70-220); MAGNESIUM 1.9 mg/dl (1.7-2.5); PHOSPHORUS 3.7 mg/dl (2.5-4.9); POTASSIUM 3.7 mmol/L (3.5-5.1); SODIUM 142 mmol/L (135-144)
[2018-03-11] MEDS: LISINOPRIL 5 MG TAB PO (08:25)
[2018-03-11] MEDS: BUPROPION 100 MG TAB NGT ×3 (08:26→20:32)
[2018-03-11] MEDS: ASPIRIN (EC) 81 MG TAB PO (08:26)
[2018-03-11] MEDS: FAMOTIDINE 20 MG TAB PO (08:26)
[2018-03-11] MEDS: POTASSIUM CHLORIDE (SR) 10 MEQ TAB PO (08:26)
[2018-03-11] MEDS: predniSONE 50 MG TAB PO (08:26)
[2018-03-11] MEDS: INSULIN ASPART [NOVOLOG] 3 ML PEN SC ×4 (08:32→21:31)
[2018-03-11] MEDS: ATORVASTATIN 40 MG TAB PO (20:33)
[2018-03-11] MEDS: TERAZOSIN 2 MG CAP PO (20:34)
[2018-03-11] MEDS: morphine LIQ (10 MG/5 ML) CUP PO (20:59)
[2018-03-11] MEDS: HYDROCODONE/APAP (5/325) TAB PO (22:17)
[2018-03-12] MEDS: ALBUTEROL/IPRATROPIUM (NEB) 3 ML AMP HHN ×6 (01:07→21:07)
[2018-03-12] MEDS: HYDROCODONE/APAP (5/325) TAB PO ×4 (02:37→22:20)
[2018-03-12] MEDS: ACCU-CHEK XX (02:42)
[2018-03-12] MEDS: morphine LIQ (10 MG/5 ML) CUP PO ×3 (04:59→21:16)
[2018-03-12] MEDS: FUROSEMIDE 40 MG INJ IV ×2 (05:07→18:03)
[2018-03-12] MEDS: INSULIN ASPART [NOVOLOG] 3 ML PEN SC ×4 (07:47→20:43)
[2018-03-12] MEDS: ASPIRIN (EC) 81 MG TAB PO (09:25)
[2018-03-12] MEDS: POTASSIUM CHLORIDE (SR) 10 MEQ TAB PO (09:25)
[2018-03-12] MEDS: FAMOTIDINE 20 MG TAB PO (09:25)
[2018-03-12] MEDS: LISINOPRIL 5 MG TAB PO (09:25)
[2018-03-12] MEDS: BUPROPION 100 MG TAB NGT ×3 (09:25→20:42)
[2018-03-12] MEDS: predniSONE 50 MG TAB PO (09:26)
[2018-03-12] MEDS: AZITHROMYCIN 250 MG TAB PO (10:39)
[2018-03-12 14:23] LABS: ANION GAP 19 (8-16); BLOOD UREA NITROGEN 28 mg/dl (7-20); CALCIUM 8.8 mg/dl (8.4-10.2); CARBON DIOXIDE 27 mmol/L (21-31); CHLORIDE 96 mmol/L (97-110); CREATININE 1.15 mg/dl (0.61-1.24); GLUCOSE 244 mg/dl (70-220); MAGNESIUM 1.8 mg/dl (1.7-2.5); POTASSIUM 4.6 mmol/L (3.5-5.1); SODIUM 137 mmol/L (135-144)
[2018-03-12] MEDS: TERAZOSIN 2 MG CAP PO (20:42)
[2018-03-12] MEDS: ATORVASTATIN 40 MG TAB PO (20:42)
[2018-03-13] MEDS: ALBUTEROL/IPRATROPIUM (NEB) 3 ML AMP HHN ×5 (01:00→16:17)
[2018-03-13] MEDS: ACCU-CHEK XX (01:18)
[2018-03-13] MEDS: HYDROCODONE/APAP (5/325) TAB PO ×2 (03:08→08:11)
[2018-03-13] MEDS: morphine LIQ (10 MG/5 ML) CUP PO (05:20)
[2018-03-13] MEDS: FUROSEMIDE 40 MG INJ IV (05:22)
[2018-03-13 05:47] LABS: ADD MAN DIFF? NO
[2018-03-13 05:52] LABS: BASOPHILS % 0.3 % (0.0-2.0); EOSINOPHILS # 0.1 10^3/ul (0.0-0.5); EOSINOPHILS % 0.6 % (0.0-7.0); HEMATOCRIT 47.1 % (42.0-52.0); HEMOGLOBIN 15.3 g/dl (14.0-18.0); LYMPHOCYTES # 3.1 10^3/ul (0.8-2.9); LYMPHOCYTES % 25.1 % (15.0-51.0); MEAN CORPUSCULAR HEMOGLOBIN 29.9 pg (29.0-33.0); MEAN CORPUSCULAR HGB CONC 32.5 g/dl (32.0-37.0); MEAN CORPUSCULAR VOLUME 92.2 fl (82.0-101.0); MEAN PLATELET VOLUME 10.7 fl (7.4-10.4); MONOCYTE # 1.2 10^3/ul (0.3-0.9); MONOCYTES % 9.5 % (0.0-11.0); NEUTROPHIL # 7.8 10^3/ul (1.6-7.5); NEUTROPHILS % 64.1 % (39.0-77.0); PLATELET COUNT 162 10^3/UL (140-415); RED BLOOD COUNT 5.11 10^6/ul (4.70-6.10); RED CELL DISTRIBUTION WIDTH 13.3 % (11.5-14.5)
[2018-03-13 05:52] LABS: WHITE BLOOD COUNT 12.2 10^3/ul (4.8-10.8)
[2018-03-13 06:41] LABS: ANION GAP 15 (8-16); BLOOD UREA NITROGEN 28 mg/dl (7-20); CALCIUM 8.8 mg/dl (8.4-10.2); CARBON DIOXIDE 31 mmol/L (21-31); CHLORIDE 99 mmol/L (97-110); CREATININE 1.02 mg/dl (0.61-1.24); GLUCOSE 127 mg/dl (70-220); POTASSIUM 4.2 mmol/L (3.5-5.1); SODIUM 141 mmol/L (135-144)
[2018-03-13] MEDS: ACETAMINOPHEN 325 MG TAB PO (07:38)
[2018-03-13] MEDS: INSULIN ASPART [NOVOLOG] 3 ML PEN SC ×2 (07:56→12:18)
[2018-03-13] MEDS: FAMOTIDINE 20 MG TAB PO (08:10)
[2018-03-13] MEDS: BUPROPION 100 MG TAB NGT ×2 (08:11→12:17)
[2018-03-13] MEDS: ASPIRIN (EC) 81 MG TAB PO (08:11)
[2018-03-13] MEDS: POTASSIUM CHLORIDE (SR) 10 MEQ TAB PO (08:12)
[2018-03-13] MEDS: predniSONE 50 MG TAB PO (08:12)
[2018-03-13] MEDS: AZITHROMYCIN 250 MG TAB PO (08:12)
[2018-03-13] MEDS: LISINOPRIL 5 MG TAB PO (08:13)
[2018-03-13] MEDS: DOCUSATE SODIUM 100 MG CAP PO (10:18)
[2018-03-13] MEDS: predniSONE 20 MG TAB PO (10:19)
[2018-03-13] MEDS ORDERED: DOCUSATE SODIUM 100 MG CAP PO (10:30)
== END 2018-03-13 16:30 | disposition home or self-care (01) | DRG 291 ==
LOC: ICU 03-07 01:54 → TEL 03-09 21:05 → E/R 10:55 → ICU 03-09 21:09 → PP2 03-11 23:00 → TEL 15:08
PROC: 5A1945Z Respiratory Ventilation, 24-96 Consecutive Hours (ICD-10-PCS; principal; 2018-03-07)
PROC: 0BH17EZ Insertion of Endotracheal Airway into Trachea, Via Natural or Artificial Opening (ICD-10-PCS; 2018-03-07)
DX: I11.0 Hypertensive heart disease with heart failure (principal); N17.0 Acute kidney failure with tubular necrosis; J96.01 Acute respiratory failure with hypoxia; G92 Toxic encephalopathy; J44.0 Chronic obstructive pulmonary disease with (acute) lower respiratory infection; Z68.42 Body mass index [BMI] 45.0-49.9, adult; D69.6 Thrombocytopenia, unspecified; Z78.1 Physical restraint status; Z95.1 Presence of aortocoronary bypass graft; I50.23 Acute on chronic systolic (congestive) heart failure; E66.9 Obesity, unspecified; F15.10 Other stimulant abuse, uncomplicated; E11.9 Type 2 diabetes mellitus without complications; I25.10 Atherosclerotic heart disease of native coronary artery without angina pectoris; E78.5 Hyperlipidemia, unspecified; I25.5 Ischemic cardiomyopathy; G47.33 Obstructive sleep apnea (adult) (pediatric); J20.9 Acute bronchitis, unspecified; Z79.4 Long term (current) use of insulin; Z79.82 Long term (current) use of aspirin; Z87.891 Personal history of nicotine dependence; Z95.0 Presence of cardiac pacemaker
CPT/HCPCS: 36415; 36600; 71045; 73560; 74018; 76775; 80048; 80053; 80307; 81001; 81003; 82140; 82550; 82553; 82570; 82803; 82962; 83036; 83735; 83880; 84100; 84300; 84484; 84560; 85025; 87081; 89190; 93005; 93970; 94002; 94003; 94640; 94664; 94770; 96374; 96375; 97162; 99285-25